=== PATIENT | female | born 1995 | race Caucasian/White ===

== ENCOUNTER 2019-04-13 15:26 | Emergency (ER) | payer OTHER, SELFPAY ==
[2019-04-13 15:38] VITALS: BP 127/62; PULSE 110; RESP 16; TEMP 37.1; O2SAT 100
--- NOTE | 2019-04-13 15:47 | ED.SKABFB ---
HPI - Skin/Abscess/Foreign Bdy General Chief complaint: Skin/Abscess/Foreign Body Stated complaint: Rash Time Seen by Provider: 04/13/19 15:47 Source: patient and family History of Present Illness HPI narrative: Patient presents with a rash under her right axilla this been there for over 5 days. Patient states that it started as one little area and has spread over the last 5 days. Patient states drainage clear drainage at times complains of pain and itching. MD complaint: rash Related Data Home Medications Medication Instructions Recorded Confirmed bupropion HCl [Wellbutrin SR] 150 mg PO DAILY 04/13/19 04/13/19 lisdexamfetamine [Vyvanse] 60 mg PO DAILY 04/13/19 04/13/19 Allergies Allergy/AdvReac Type Severity Reaction Status Date / Time No Known Allergies Allergy Unknown Verified 04/13/19 15:49 Review of Systems Review of Systems: Narrative: CONSTITUTIONAL: Denies fever, chills, or sweats. EYES: Denies visual changes, redness, or discharge. ENT: Denies rhinorrhea, congestion, sore throat, or otalgia. CARDIOVASCULAR: Denies chest pain, palpitations, or edema. RESPIRATORY: Denies cough or dyspnea. GASTROINTESTINAL: Denies abdominal pain, nausea, vomiting, or diarrhea. GENITOURINARY: Denies dysuria or hematuria. SKIN: Painful and itchy rash under right axilla for the past 5 days MUSCULOSKELETAL: Denies back pain, joint pain, or myalgia. NEUROLOGIC: Denies headache, numbness, or weakness. PSYCHIATRIC: Denies anxiety or depression. All systems reviewed & are unremarkable except as noted in HPI and below PMFSH Past Medical History Medical History Anxiety Depression GERD (gastroesophageal reflux disease) Hepatitis A Hypertension depression Surgical History Surgical History Previous section distress Comments At time of signature, agree with nursing past medical, surgical, social and family history. There is no relevant family history pertinent to the presenting complaint Exam Narrative: Exam Narrative: GENERAL: Well-appearing, well-nourished, and in no acute distress. HEAD: Normocephalic, atraumatic. EYES: PERRLA and EOMI. ENT: Nares clear, no rhinorrhea or epistaxis. Mucous membranes moist. NECK: Supple. CHEST: Clear to auscultation. No respiratory distress. HEART: Regular rate and rhythm. No murmur heard. Normal peripheral pulses. ABDOMEN: Soft, nontender, nondistended, normal active bowel sounds. EXTREMITIES: Normal range of motion. No edema. SKIN: Warm, dry, herpetiform rash under right axilla that follows a dermatome no concern for cellulitis NEURO: No focal deficits. Alert and oriented x3. [place] Coma Scale Eye Opening: Spontaneous 4 [place] Coma Scale Motor: Obeys Commands 6 [place] Coma Scale Verbal: Oriented 5 [place] Coma Scale Total 15 Course Vital Signs Vital signs: Vital Signs Temperature 37.1 C 04/13/19 15:38 Pulse Rate 110 H 04/13/19 15:38 Respiratory Rate 16 04/13/19 15:38 Blood Pressure 127/62 04/13/19 15:38 Pulse Oximetry 100 04/13/19 15:38 Temperature 37.1 C 04/13/19 15:38 Pulse Rate 110 H 04/13/19 15:38 Respiratory Rate 16 04/13/19 15:38 Blood Pressure 127/62 04/13/19 15:38 Pulse Oximetry 100 04/13/19 15:38 MDM - Skin/Abscess/Foreign Bdy Differential Diagnosis Differential diagnosis: Likely abscess of skin or subcutaneous tissue, viral exanthem, dermatophytosis, urticaria, herpes zoster, eczema and impetigo Critical Care Time Critical Care Time Critical Care Time: No Discharge Plan Discharge Clinical Impression: Shingles rash Qualifiers: Herpes zoster complications: without complications Qualified Code(s): B02.9 - Zoster without complications Patient Disposition: Home, Self-Care Condition: Stable Instructions: Antibiotic Form Additional Instructions: Apply cream as prescribed Monitor
== END 2019-04-13 16:01 | disposition home or self-care (01) ==
PROVIDERS: Emergency Provider Nurse Practitioner Family
DX: B02.9 Zoster without complications (principal); F41.9 Anxiety disorder, unspecified; F32.9 Major depressive disorder, single episode, unspecified; K21.9 Gastro-esophageal reflux disease without esophagitis; Z86.19 Personal history of other infectious and parasitic diseases; I10 Essential (primary) hypertension
CPT/HCPCS: 99213; G0463

== ENCOUNTER 2019-04-18 16:46 | Emergency (ER) | payer OTHER, SELFPAY ==
[2019-04-18 16:58] VITALS: BP 116/78; PULSE 93; RESP 18; TEMP 36.4; O2SAT 97
--- NOTE | 2019-04-18 17:24 | ED.SKABFB ---
HPI - Skin/Abscess/Foreign Bdy General Chief complaint: Skin/Abscess/Foreign Body Stated complaint: shingles Time Seen by Provider: 04/18/19 16:52 Source: patient Mode of arrival: ambulatory Limitations: no limitations History of Present Illness HPI narrative: Patient presents with chief complaint of tender pruritic rash to her right axilla that has been present almost 2 weeks. Patient states she was originally seen in urgent care and prescribed triamcinolone ointment but that has not been helping. Patient states that she did have chickenpox as a child. Patient also reports irritation to her bellybutton after changing her bellybutton ring a few days ago. Patient denies fever, chills, nausea, vomiting, diarrhea. Patient states that she has ADHD, bipolar, anxiety and depression. Patient denies any issues with her psychiatric conditions at this time. Patient states that she smokes and occasionally smokes marijuana as well. Patient states that she also occasionally uses alcohol. Patient denies chance of due to recently ending her menstrual cycle. Related Data Home Medications Medication Instructions Recorded Confirmed bupropion HCl [Wellbutrin SR] 150 mg PO DAILY 04/13/19 04/13/19 lisdexamfetamine [Vyvanse] 60 mg PO DAILY 04/13/19 04/13/19 Allergies Allergy/AdvReac Type Severity Reaction Status Date / Time No Known Allergies Allergy Unknown Verified 04/18/19 17:18 Review of Systems Review of Systems: Narrative: CONSTITUTIONAL: Denies fever, chills, or sweats. EYES: Denies visual changes, redness, or discharge. ENT: Denies rhinorrhea, congestion, sore throat, or otalgia. CARDIOVASCULAR: Denies chest pain, palpitations, or edema. RESPIRATORY: Denies cough or dyspnea. GASTROINTESTINAL: Denies abdominal pain, nausea, vomiting, or diarrhea. GENITOURINARY: Denies dysuria or hematuria. SKIN: Reports rash or itching. MUSCULOSKELETAL: Denies back pain, joint pain, or myalgia. NEUROLOGIC: Denies headache, numbness, dizziness, or weakness. PSYCHIATRIC: Denies anxiety or depression. PMFSH Social History Social History Gender identity (if verbalized by the patient): Female Exam Narrative: Exam Narrative: GENERAL: Well-appearing, well-nourished, and in no acute distress. HEAD: Normocephalic, atraumatic. EYES: PERRLA and EOMI. ENT: Nares clear, no rhinorrhea or epistaxis. Mucous membranes moist. Oropharynx without tonsillar hypertrophy exudate or other lesions. Bilateral TMs pearly armstrong nonbulging NECK: Supple. No adenopathy or masses. No carotid bruits or JVD CHEST: Clear to auscultation. No respiratory distress. No wheezes rales or rhonchi HEART: Regular rate and rhythm. No murmur heard. Normal peripheral pulses. ABDOMEN: Soft, nontender, nondistended, normal active bowel sounds. EXTREMITIES: Normal range of motion. No edema. SKIN: Herpes zoster noted to right axilla some of the lesions are crusted over. excoriations noted. A few areas with honey colored crusting without drainage. No bullous vesicles noted. Small area of irritation noted to the bellybutton ring appears to be contact irritation becoming with metal. No sign of abscess or cellulitis at this time. NEURO: No focal deficits. Alert and oriented x3. PSYCH: Normal mood and affect. Course Vital Signs Vital signs: Vital Signs Temperature 97.6 F 04/18/19 16:58 Pulse Rate 93 04/18/19 16:58 Respiratory Rate 18 04/18/19 16:58 Blood Pressure 116/78 04/18/19 16:58 Pulse Oximetry 97 04/18/19 16:58 Temperature 97.6 F 04/18/19 16:58 Pulse Rate 93 04/18/19 16:58 Respiratory Rate 18 04/18/19 16:58 Blood Pressure 116/78 04/18/19 16:58 Pulse Oximetry 97 04/18/19 16:58 MDM - Skin/Abscess/Foreign Bdy MDM Narrative Medical decision making narrative: Patient will be put on antiviral and given mupirocin to apply to lesions. Patient instructed to change her bili ring as her
[2019-04-18 19:14] VITALS: BP 126/51; PULSE 93; RESP 18; TEMP 36.7; O2SAT 100
== END 2019-04-18 19:17 | disposition home or self-care (01) ==
PROVIDERS: Emergency Provider Emergency Medicine
DX: B02.9 Zoster without complications (principal)
CPT/HCPCS: 99283

== ENCOUNTER 2020-07-27 02:07 | Inpatient (IN) | payer OTHER, SELFPAY ==
--- NOTE | 2020-07-13 16:33 | PC.NURSE ---
PATIENT STATES LAST TIME SHE WAS SEEN BY AN OB DOCTOR WAS IN MAY WHEN SHE WAS STILL IN [place].SEEING DR CHAMPION ON 07/18/20 FOR FIRST VISIT. CALLED OFFICE FOR --NO RECORDS YET FROM DOCTOR IN [place], WILL REQUEST RECORDS AT FIRST VISIT WITH PATIENT. PATIENT STATES SHE PLANS TO HAVE A DELIVERY-CONSENT IS SIGNED
[2020-07-27] VITALS (113 sets, daily range): BP systolic 88–150; BP diastolic 42–104; PULSE 57–134; RESP 16–18; TEMP 36.4–37.1; O2SAT 89–100; BMI 32.7
--- NOTE | 2020-07-27 02:07 | LDADM ---
This patient, Blaze Lauren, was admitted to Labor/Delivery/Recovery 102 on 07/27/20 at 02:07. Plans for labor, pain management and were discussed with patient. Patient/family oriented to hospital policies and general routines including ID bracelet, bed and alarms, visiting hours, pain management, procedures, bathroom and other care routines, personal items, smoking policy, room service/diet and guest tray routines, security routines, and visiting hours. Patient/Family are encouraged to report perceived risks to care and to ask questions if they do not understand what they are told or what they should do. See OBIX for further documentation.
[2020-07-27] MEDS: ONDANSETRON INJ 4 MG/2 ML VIAL IV PUSH (02:35)
[2020-07-27 02:41] LABS: Glucose Point of Care 111 mg/dl (65-105)
[2020-07-27] MEDS: LACTATED RINGERS 1,000 ML 125 ML IV CONT ×3 (02:42→06:11)
[2020-07-27 02:47] LABS: Basophils Percent Auto 0.2 % (0.2-1.2); Eosinophils Absolute Auto 0.1 K/mm3 (0-0.3); Eosinophils Percent Auto 0.7 % (0-4.4); Hematocrit 34.5 % (37.0-47.0); Hemoglobin 11.5 g/dL (12.0-15.0); Immature Granulocyte Absolute 0.11 K/mm3 (0.00-0.031); Immature Granulocyte Percent A 0.8 % (0-0.5); Lymphocytes Absolute Auto 2.35 K/mm3 (0.9-3.2); Lymphocytes Percent Auto 17.1 % (18.3-44.2); Mean Corpuscular HGB Conc 33.3 g/dl (32-36); Mean Corpuscular Hemoglobin 27.9 pg (26-34); Mean Corpuscular Volume 83.7 fl (80-100); Mean Platelet Volume 10.1 fl (7.4-10.4); Monocytes Absolute Auto 0.7 K/mm3 (0.1-0.6); Monocytes Percent Auto 4.9 % (2.6-8.5); Neutrophils Absolute Auto 10.5 K/mm3 (1.3-6.7); Neutrophils Percent Auto 76.3 % (45.5-73.1); Platelet Count Result 373 k/mm3 (150-375); Red Blood Count 4.12 M/mm3 (4.2-5.4); Red Cell Distribution Width 13.8 % (11.5-14.5); White Blood Count 13.8 K/mm3 (4.5-10.0)
--- NOTE | 2020-07-27 03:41 | WPDANESEPPF ---
Anes - Initial Pre Proc Eval Procedure: labor epidural Date/Time: 07/27/20 03:19 Surgeon: Eduardo Pinto MD Pre Op Diagnosis: labor pain Pre Op Diagnosis: leaking fluid Patient Data Age: 24 Gender: F Height: 1.68 m Weight: 92 kg Last Vital Signs Pulse 75 07/27/20 03:39 BP 108/56 L 07/27/20 03:39 Pulse Ox 98 07/27/20 03:38 Allergies Allergy/AdvReac Type Severity Reaction Status Date / Time No Known Allergies Allergy Unknown Verified 07/13/20 16:13 Home Medications Medication Instructions Recorded Confirmed Type acyclovir See Rx Instructions .ROUTE 04/18/19 Rx .COMPLEX 7 Days #35 tablet ondansetron HCl [Zofran] 8 mg PO Q8H PRN 07/13/20 07/13/20 History prenat.vits,toni,znf-crhy-jovau 1 tablet PO DAILY 07/13/20 07/13/20 History [ #2] Laboratory Tests 07/27/20 07/27/20 07/27/20 02:32 02:32 02:38 WBC 13.8 K/mm3 H K/mm3 (4.5-10.0) RBC 4.12 M/mm3 L M/mm3 (4.2-5.4) Hgb 11.5 g/dL L g/dL (12.0-15.0) Hct 34.5 % L % (37.0-47.0) MCV 83.7 fl fl (80-100) MCH 27.9 pg pg (26-34) MCHC 33.3 g/dl g/dl (32-36) RDW 13.8 % % (11.5-14.5) Plt Count 373 k/mm3 k/mm3 (150-375) MPV 10.1 fl fl (7.4-10.4) Immature Gran % (Auto) 0.8 % H % (0-0.5) Neut % (Auto) 76.3 % H % (45.5-73.1) Lymph % (Auto) 17.1 % L % (18.3-44.2) [place] % (Auto) 4.9 % % (2.6-8.5) Eos % (Auto) 0.7 % % (0-4.4) Baso % (Auto) 0.2 % % (0.2-1.2) Lymph # (Auto) 2.35 K/mm3 K/mm3 (0.9-3.2) [place] # (Auto) 0.7 K/mm3 H K/mm3 (0.1-0.6) Eos # (Auto) 0.1 K/mm3 K/mm3 (0-0.3) Baso # (Auto) 0.0 K/mm3 K/mm3 (0.0-0.1) Abs Immat Gran (auto) 0.11 K/mm3 H K/mm3 (0.00-0.031) Absolute Neuts (auto) 10.5 K/mm3 H K/mm3 (1.3-6.7) Absolute Nucleated RBC 0.0 K/mm3 K/mm3 (0.0-0.012) Nucleated RBC % 0.0 % % (0.0-0.2) POC Capillary Glucose 111 mg/dl H mg/dl (65-105) RPR Pending Patient hx anesthesia problems: none Family hx anesthesia problems: none PMFSH Past Medical History Medical History Anxiety Depression GERD (gastroesophageal reflux disease) Hepatitis A Hypertension depression Surgical History Surgical History Previous section distress Family History Family History Father Hypertension Asthma Grandparent Diabetes mellitus Social History Social History Smoking packs per day: 0.5 Smoking cigarettes per day: 10.0 Years smoked: 7 Smoking pack-years: 3.50 Smoking status: Former smoker Substance use: never Gender identity (if verbalized by the patient): Female Spiritual care concerns: No Anes - Eval Final PreProcedure Day of Procedure 07/27/20 03:41 Patient weight: overweight Heart: regular rate and rhythm Lungs: clear to auscultation and normal air movement Airway: Mallampati scale Neurological: alert and oriented ASA classification: II Anesthetic plan: proceed Anesthesia type and monitoring: regional epidural and standard monitoring Informed Consent: The patient's anesthetic plan and its attendant risks and benefits were discussed with the patient/family/POA. Questions were solicited and answers provided to the satisfaction of the patient/family/POA.
[2020-07-27 06:17] LABS: Glucose Point of Care 86 mg/dl (65-105)
--- NOTE | 2020-07-27 07:15 | WPDOBADMIT ---
Obstetrics - Admit Note Admission Note: record reviewed. No pertinent additions to the history and/or any subsequent changes in the physical findings that are not consistent with the expected course of the were found. Hx of delivery and successful , pt admitted in labor, anticipate vaginal delivery Additions to the history and/or subsequent changes in the physical findings follow. None.
[2020-07-27 08:30] LABS: Rapid Plasma Reagin Non-Reactive (NonReactive)
[2020-07-27] MEDS: OXYTOCIN 30 UNITS/NS 500 ML 30 UNITS/500 ML BAG 999 UNITS IV CONT (08:34)
--- NOTE | 2020-07-27 08:39 | PM.OBPRVD ---
OB - Delivery Note Procedure Delivery date: 07/27/20 Procedure: vaginal delivery, previous events: No Care Intrapartal events: None Induction method: none Delivery monitor: external FHT, external uterine and internal FHT Route of delivery: Laceration Description: None Specimen: No Quantitative Blood Loss (ml): 104 Anesthesia type: Epidural Disposition: floor Baby Date of : 07/27/20 Time of : 08:31 Weeks of gestation at delivery: 39 Infant gender: Female Weight (pounds): 7 Weight (ounces): 13 presentation: vertex position: Left Occiput Posterior Placenta delivery description: Spontaneous cord vessel description: 3 Vessels, Nuchal Cord, Loose, Reduced, Clamped/Cut and Delayed Cord Clamping score one minute: 9 score five minutes: 9 Narrative: mother and baby stable. peds at delivery for meconium
[2020-07-27] MEDS: OXYTOCIN 30 UNITS/NS 500 ML 30 UNITS/500 ML BAG 125 UNITS IV CONT (09:06)
[2020-07-27 09:39] LABS: Amphetamine Screen Urine Negative (Negative); Barbiturate Screen Urine Negative (Negative); Benzodiazepines Screen Urine Negative (Negative); Cannabinoid Screen Urine Positive (Negative); Cocaine Screen Urine Negative (Negative); Methadone Screen Urine Negative (Negative); Opiate Screen Urine Negative (Negative); Phencyclidine Screen Urine Negative (Negative)
[2020-07-27] MEDS: CALCIUM CARBONATE (TUMS) 500 MG (200 MG ELEMENTAL) PO (09:54)
[2020-07-27] MEDS: IBUPROFEN 600 MG TABLET PO ×2 (11:23→20:54)
[2020-07-27] MEDS: WITCH HAZEL 40 PADS 1 PAD TOPICAL (11:28)
--- NOTE | 2020-07-27 11:45 | OBPPTRN ---
Patient transferred to post room # 276 via wheelchair. Support person present. Oriented to unit, room, information board, rooming in, admission packet and security measures. Patient verbalizes understanding.
[2020-07-27] MEDS: ACETAMINOPHEN 325 MG TABLET 650 MG PO (12:39)
[2020-07-28] VITALS: BP 113/97; PULSE 80; RESP 16; TEMP 36.9; O2SAT 100
[2020-07-28 04:30] VITALS: BP 122/73; PULSE 74; RESP 16; TEMP 36.3; O2SAT 100
[2020-07-28 05:23] LABS: Hematocrit 32.9 % (37.0-47.0); Hemoglobin 10.5 g/dL (12.0-15.0)
--- NOTE | 2020-07-28 07:43 | WPDANLDPN2 ---
Anes-Prog Note L&D Date/Time: 07/28/20 07:43 Comfortable throughout: labor Neuraxial method: epidural Epidural/Spinal procedure site: clean & non-tender Neuro status: Neuro function grossly intact. Cardiovascular status: normal Respiratory status: normal Airway patency: baseline Mental status: baseline Post-Op hydration status: normal Vital Signs: Last Vital Signs Temp 36.3 C L 07/28/20 04:30 Pulse 74 07/28/20 04:30 Resp 16 07/28/20 04:30 BP 122/73 07/28/20 04:30 Pulse Ox 100 07/28/20 04:30 Pain score (VAS): 0 I/O: Intake & Output 07/27/20 07/27/20 07/28/20 15:59 23:59 07:59 Intake Total 900 Output Total 75 Balance 825 Post-procedural complaints: none Patient feedback: Patient satisfied with anesthetic care.
--- NOTE | 2020-07-28 08:11 | PM.OBPNVD ---
OB - PN: Subj Subjective Date/time seen: 07/28/20 08:11 Patient comments: no complaints and pain well controlled baby status: bottle feeding well [place] feeding status: exclusively bottle feeding Narrative: Would like DC home today. OB - PN: Obj Data Labs CBC & Chem 7: 07/28/20 04:26 Labs: Laboratory Results - last 24 hr 07/27/20 07/27/20 07/28/20 02:32 08:49 04:26 Hgb 10.5 L Hct 32.9 L Urine Opiates Screen Negative Urine Methadone Screen Negative Ur Barbiturates Screen Negative Ur Phencyclidine Scrn Negative Ur Amphetamine Screen Negative U Benzodiazepines Scrn Negative Urine Cocaine Screen Negative U Cannabinoids Screen Positive A RPR Non-reactive OB - PN A/P Plan day: 1 Plan: routine care and discharge home Comments: DC instructions given Time Spent With Patient Time: Total time spent is greater than 50% in coordination of care (as documented) at patient's floor/unit and/or counseling patient: Time with patient: less than 15 minutes Exam Narrative: Exam Narrative: NAD abdomen soft, nontender, fundus firm below the umbilicus Extremities nontender, 1+ edema
--- NOTE | 2020-07-28 08:14 | PM.OBDSVD ---
DS: Admitting Diagnosis Admitting Diagnosis Admitting Diagnosis: labor at term DS: Discharge Diagnosis Discharge Diagnosis (1) (vaginal after ): Code(s): O34.219 - Maternal care for unspecified type scar from previous delivery Status: Acute OB - DS: Summary OB Procedures : Ultrasound OB Procedures Intrapartum: OB Procedures: : None Peripartum Data Infant Delivery Method: Natural Vaginal complications: none Status at Discharge Functional status at discharge: independent ambulation Time Spent with Patient Time attestation: Total time spent providing and/or coordinating discharge services: Exam Narrative: Exam Narrative: NAD abdomen soft, appropriately tender Ext non tender, 1+ edema DS: Data Data Completed and Pending Pending studies at discharge: Pending at discharge 07/27/20 08:34 Surgical [PTH] Routine Labs on day of discharge: Labs from last 24 hours 07/28/20 07/27/20 07/27/20 04:26 08:49 02:32 Hgb 10.5 L Hct 32.9 L Urine Opiates Screen Negative Urine Methadone Screen Negative Ur Barbiturates Screen Negative Ur Phencyclidine Scrn Negative Ur Amphetamine Screen Negative U Benzodiazepines Scrn Negative Urine Cocaine Screen Negative U Cannabinoids Screen Positive A RPR Non-reactive Discharge Plan Discharge Attending physician on discharge: Yamileth Lomas Discharging Clinician: Yamileth Lomas Anticipated Discharge Date/Time: 07/28/20 14:00 Patient Disposition: Home, Self-Care Activity: may shower and pelvic rest Diet: as tolerated Patient Instructions: Antibiotic Form Stand Alone Forms: General Discharge Information Follow-up/Referrals: Eduardo Pinto MD [Physician] - (4 weeks) Discharge Medications: Continued #2 Tablet 1 tablet PO DAILY RF: 0 Discontinued ondansetron HCl [Zofran] 8 mg Tablet 8 mg PO Q8H PRN (Reason: Nausea) RF: 0 Date of admission: 07/27/20 02:07 Primary Care Provider: PHYSICIAN,SENIOR STORAGE ENGINEER Admitting Provider: Eduardo Pinto Attending physician on admission: Eduardo Pinto Condition: Stable
[2020-07-28 09:30] VITALS: BP 118/68; PULSE 72; PULSE 74; RESP 16; TEMP 37; O2SAT 100; O2SAT 99
[2020-07-28] MEDS: WITCH HAZEL 40 PADS 1 PAD TOPICAL (09:38)
[2020-07-28] MEDS: IBUPROFEN 600 MG TABLET PO (09:38)
[2020-07-28] MEDS: DOCUSATE SODIUM 100 MG CAPSULE PO (09:38)
[2020-07-28] MEDS: BENZOCAINE 20% AER SPR (*SP) 56 GM CAN 1 SPRAY TOPICAL (09:38)
[2020-07-28] MEDS: TETANUS,DIPHTHERIA,AC PERTUSSIS ADULT (0.5 ML) BOOSTRIX IM (09:39)
--- NOTE | 2020-07-28 12:04 | PCCCNOTE ---
Care Coordination. Patient referred to Care Coordination for mother and baby UDS positive for marijuana. Met with pt. and FOB at bedside. Pt. plans to return home with baby, significant other, and her other son and daughter. She reports having really good family support, but some sadness over mother recently moving away from family and not staying in contact. Pt. has history of depression and bipolar per RN. Spoke with pt. and she reports not currently on medications, but feels she is handling it well. Encouraged pt. to talk with her doctor if she begins to feel like depression or post starts. Provided pt. with counseling information and she reports overall this is her best delivery and she feels well. She states family will assist and she has all necessary baby care items. She is setup with [facility] in [place] and has food stamps. Spoke with Catherine Willingham with [facility] hotline. She took pt.'s situation as information only ID#[id number].
== END 2020-07-28 17:37 | disposition home or self-care (01) | DRG 807 ==
LOC: ANHLDR 05:33 → ANHOB2 07-28 08:14 → ANHLDR 07-31 09:50 → ANHOB2 07-31 09:50
PROVIDERS: Advanced Practice Midwife; Obstetrics & Gynecology; Admitting Provider Obstetrics & Gynecology; Visit Provider Obstetrics & Gynecology
DX: O34.211 Maternal care for low transverse scar from previous cesarean delivery (principal); Z37.0 Single live birth; O24.429 Gestational diabetes mellitus in childbirth, unspecified control; Z3A.39 39 weeks gestation of pregnancy; O99.344 Other mental disorders complicating childbirth; F32.9 Major depressive disorder, single episode, unspecified; F41.9 Anxiety disorder, unspecified; O99.62 Diseases of the digestive system complicating childbirth; K21.9 Gastro-esophageal reflux disease without esophagitis; O16.4 Unspecified maternal hypertension, complicating childbirth; O69.81X0 Labor and delivery complicated by cord around neck, without compression, not applicable or unspecified; O77.0 Labor and delivery complicated by meconium in amniotic fluid; Z86.19 Personal history of other infectious and parasitic diseases
CPT/HCPCS: 36415; 80307; 82948; 85014; 85018; 85025; 86592; 86850; 86900; 86901; 88307; 90715; A9270; J2405; J2590; J2795; J7120